=== PATIENT | male | born 1985 | race Caucasian/White ===

== ENCOUNTER 2016-11-23 22:52 | Emergency (ER) | payer SELFPAY ==
[~2016-11-23] VITALS: Ht 172.7 cm; Wt 108.1 kg
[2016-11-23 22:54] VITALS: BP 145/84
== END 2016-11-24 00:28 | disposition left against medical advice (07) ==
LOC: ED 23:59
DX: J02.9 Acute pharyngitis, unspecified (principal); R51 Headache; Z53.21 Procedure and treatment not carried out due to patient leaving prior to being seen by health care provider